=== PATIENT | male | born 1975 | race African-American/Black ===

== ENCOUNTER 2020-02-01 09:53 | Emergency (ER) | payer OTHER, BC, SELFPAY ==
[2020-02-01 10:01] VITALS: BP 139/91; PULSE 84; RESP 17; TEMP 36.9; O2SAT 97; BMI 23.1
--- NOTE | 2020-02-01 10:04 | XR_ITS ---
PROCEDURE: XR ELBOW RT MIN 3V CLINICAL INDICATION: pain, injury COMPARISON: XR SHOULDER RT MIN 2V from 02/01/2020 FINDINGS: There is a small calcific density between the radial head and the coracoid process which measures 4 mm. This is nonspecific and could be related to an old or acute injury or even an overlying osteophyte or summation density. No other significant anomalies are evident. The joint spaces are well-preserved. No significant degenerative/arthritic changes. No erosive changes evident. Other findings:None. IMPRESSION: Possible avulsion fracture along the proximal aspect between the radial head and the coracoid process age indeterminate. CT may confirm Dictated by: Jeffery Flores MD 02/01/2020 11:01 Electronically signed by Jeffery Flores MD in [place] 02/01/2020 11:01
--- NOTE | 2020-02-01 10:04 | XR_ITS ---
PROCEDURE: XR SHOULDER RT MIN 2V CLINICAL INDICATION: pain, injury Right anterior shoulder pain COMPARISON: No exams were available for comparison FINDINGS: No obvious fracture or dislocation. There is some some ill-defined sclerosis of the humeral head at the base of the greater tuberosity with some sub chondral cystic changes which can be seen with rotator cuff disease. IMPRESSION: No acute finding. Degenerative changes at the humeral head Dictated by: Jeffery Flores MD 02/01/2020 11:02 Electronically signed by Jeffery Flores MD in [place] 02/01/2020 11:02
--- NOTE | 2020-02-01 10:18 | PC.NURSE ---
PT TO RAD
--- NOTE | 2020-02-01 10:24 | PC.NURSE ---
PT RETURNED FROM RAD
--- NOTE | 2020-02-01 10:50 | HMH.EDGENADL ---
ED Disposition Clinical Impression: Injury of right rotator cuff Qualifiers: Encounter type: initial encounter Qualified Code(s): S46.001A - Unspecified injury of muscle(s) and tendon(s) of the rotator cuff of right shoulder, initial encounter Contusion of right elbow Qualifiers: Encounter type: initial encounter Qualified Code(s): S50.01XA - Contusion of right elbow, initial encounter Disposition: Home, Self-Care Condition on Discharge: Good Instructions: DI for Rotator Cuff Injury, How to Use a Sling, DI for Elbow Pain Additional Instructions: Sling, ice, elevation. [place] as needed for pain. Follow-up with orthopedics, call for appointment. Additional instructions for CONTROLLED SUBSTANCES: You have been prescribed a medication that is a controlled substance. Controlled substances include pain medications known as opiates and sedative nerve medications known as benzodiazepines. Tramadol, fioricet, and gabapentin are also controlled substances. Some common opiates include: Codeine (such as Tylenol #3) Hydrocodone (Vicodin, Lortab, Lorcet, [place]) Oxycodone (Percocet, Percodan, Oxycodone, Oxy IR) Some common benzodiazepines include: Diazepam (Valium) Lorazepam (Ativan) Alprazolam (Xanax) Clonazepam (Klonopin) Oxazepam (Serax) All of these controlled substances are highly addictive and frequently abused. Misuse can and frequently does lead to addiction as well as overdose and . Medication should be stored in a locked cabinet or other secure storage unit. Do not store the medication in a motor vehicle. Short term supplies, 3 days or less, are prescribed because of the highly addictive nature of the medication. Any of the controlled substance medication NOT taken should be disposed of properly and NOT SAVED. The recommended method of disposing of unused medications is: Place the medicines in a sealable plastic bag. If the medicine is a solid, crush it or add water to dissolve it. Add something undesirable (cat litter, coffee grounds, etc.) Dispose of sealed bag in household trash Do not flush or pour unused medicines down a sink or drain. Controlled substances should not be shared, given away or sold. Because of the addictive nature and frequent abuse, these medications are sometimes stolen. These medications should be kept in a safe place where they cannot be stolen. Do not keep them in your car or purse. Lost or stolen prescriptions for controlled substances WILL NOT BE REFILLED in this emergency department, regardless of whether a police report was filed. Prescriptions: Hydrocod/Acet 5/325 mg [[place] 5/325mg tablet] 1 tab PO Q6HP PRN #10 tab PRN Reason: Pain Transmission Status: Sent to [facility] Referrals: Provider,Erika, [Primary Care Provider] - Sudhir Simpson MD [Staff Physician] - Forms: Work/School Release - Critical Care Critical Care Time: No Attestation: On 02/01/20, the high probability of a clinically significant, sudden or life threatening deterioration of the following system(s) required my full and direct attention, intervention and personal management. The time I documented below is in addition to time spent performing reported procedures but includes the following listed in this critical care notation. Medical Decision Making - Andres Inquiry Pt receiving controlled substance: Yes Andres was queried for this patient: Yes Reference #:: [id number] Risks and benefits of using a controlled substance: were discussed with pt by me Comment: 15 rxs for adderall Vital Signs: 02/01/20 10:01 Temperature 98.4 F Temperature Source Oral Pulse Rate [Right Radial] 84 Respiratory Rate 17 Blood Pressure [Right Arm] 139/91 H Blood Pressure Mean [Right Arm] 107 02 Sat by Pulse Oximetry 97 Oxygen Delivery Method Room Air - Radiology Data #1 Image Reviewed: Yes I reviewed the patient's radiology image, Yes I have reviewed radiologist's int
--- NOTE | 2020-02-01 11:09 | CT_ITS ---
PROCEDURE: CT ELBOW RT WO CON CLINICAL HISTORY: possible fracture on x-ray Injury with pain, possible fracture noted on radiograph COMPARISON: No exams were available for comparison TECHNIQUE: Axial images obtained with sagittal and coronal reformats. All CT scans at the facility use one or more dose reduction, viz: automated exposure control, ma/kV adjustment per patient size (including targeted exams where dose is matched to indication, i.e. head), or iterative reconstruction technique. FINDINGS: There is a small extra calcific density noted along the lateral aspect of the trochlea of the humerus. On the sagittal reformatted image this has a somewhat irregular contour and has the appearance of a fracture. The margins are however well-circumscribed. This could represent a chronic injury. The loose body is also consideration. No displaced fat pad is evident. No joint effusion. No other significant anomalies are evident. IMPRESSION: A small well-circumscribed calcific density is present along the lateral trochlear ridge and may represent an avulsion fracture. The margins do appear somewhat sclerotic suggesting that this could be chronic. Please correlate with clinical findings. An intra-articular loose body is also consideration. No other significant anomalies are evident. No displaced fat pad Dictated by: Jeffery Flores MD 02/01/2020 11:50 Electronically signed by Jeffery Flores MD in [place] 02/01/2020 11:50
[2020-02-01 12:48] VITALS: BP 143/79; PULSE 85; RESP 15; TEMP 36.6; O2SAT 100
== END 2020-02-01 12:49 | disposition home or self-care (01) ==
PROVIDERS: Emergency Provider Emergency Medicine
DX: S46.001A Unspecified injury of muscle(s) and tendon(s) of the rotator cuff of right shoulder, initial encounter (principal); S50.01XA Contusion of right elbow, initial encounter; Z88.0 Allergy status to penicillin; F17.210 Nicotine dependence, cigarettes, uncomplicated; W22.09XA Striking against other stationary object, initial encounter; Y92.69 Other specified industrial and construction area as the place of occurrence of the external cause; Y99.0 Civilian activity done for income or pay
CPT/HCPCS: 73030; 73080; 73200; 99282

== ENCOUNTER → 2020-02-22 12:50 | Outpatient (CLI) | payer OTHER, SELFPAY ==
--- NOTE | 2020-02-22 12:51 | MR_ITS ---
PROCEDURE: MR SHOULDER RT WO CON CLINICAL INDICATION: right shoulder pain, evaluate rotator cuff tear Right shoulder pain, injury with pain COMPARISON: XR SHOULDER RT MIN 2V from 02/01/2020 TECHNIQUE: Routine multiplanar multi echo sequences are performed without gadolinium enhancement. FINDINGS: Complete tear involves the supraspinatus tendon distally with mild retraction of the musculotendinous fibers. There is some thickening of the distal aspect of the infraspinatus tendon consistent with tendinopathy/tendinosis with suspected partial tear along the distal aspect and undersurface of the infraspinatus tendon. The subscapularis and teres minor tendons appear intact. Subarticular cyst is present along the greater tubercle which measures 5 mm with some increased T2 signal of the greater tubercle suggesting underlying inflammatory or posttraumatic changes. There is a small shoulder joint effusion. No definite labral tear. The bicipital tendon is in place. There is a small shoulder joint effusion IMPRESSION: 1. Complete tear of the supraspinatus tendon with mild retraction of the musculotendinous fibers 2. Tendinopathy/tendinosis of the infraspinatus tendon with suspected partial tear distally Dictated by: Jeffery Flores MD 02/23/2020 13:04 Electronically signed by Jeffery Flores MD in [place] 02/23/2020 13:04
== END ==
PROVIDERS: PCP Emergency Medicine; Visit Provider Orthopaedic Surgery
DX: S49.91XA Unspecified injury of right shoulder and upper arm, initial encounter (principal)
CPT/HCPCS: 73221

== ENCOUNTER → 2020-03-13 14:27 | Outpatient (POV) | payer OTHER, SELFPAY | PROVIDERS: PCP Emergency Medicine; Visit Provider Specialist | DX: M79.601 Pain in right arm (principal); R20.2 Paresthesia of skin | CPT/HCPCS: 95886; 95908 ==

== ENCOUNTER 2020-03-19 13:33 | Emergency (ER) | payer OTHER, SELFPAY ==
[2020-03-19 13:44] VITALS: BP 142/81; PULSE 91; RESP 18; TEMP 36.9; O2SAT 99; BMI 26.4
--- NOTE | 2020-03-19 14:07 | HMH.EDUTC ---
[facility] Disposition Clinical Impression: Encounter to obtain excuse from work Shoulder pain Qualifiers: Chronicity: chronic Laterality: right Qualified Code(s): M25.511 - Pain in right shoulder Disposition: Home, Self-Care Condition on Discharge: Good Instructions: DI for Shoulder Pain, Rotator Cuff Injury Additional Instructions: Follow up with Dr Simpson on Fri as scheduled Return if needed Straight to ER if any life threatening symptoms Follow up with PCP if needed Prescriptions: Ibuprofen [Ibuprofen 800mg Tablet] 800 mg PO TIDP PRN #20 tab PRN Reason: Moderate Pain Transmission Status: Pending to [facility] Referrals: Ezequiel Gil MD [Primary Care Provider] - Sudhir Simpson MD [Staff Physician] - Time of Disposition: 14:10 Medical Decision Making - Andres Inquiry Pt receiving controlled substance: No Andres was queried for this patient: No Vital Signs: 03/19/20 13:44 Temperature 98.5 F Temperature Source Oral Pulse Rate [Right Brachial] 91 H Respiratory Rate 18 Blood Pressure [Right Arm] 142/81 H Blood Pressure Mean [Right Arm] 101 Blood Pressure Source [Right Arm] Automatic Cuff Blood Pressure Position [Right Arm] Sitting 02 Sat by Pulse Oximetry 99 Oxygen Delivery Method Room Air [facility] HPI - General Stated complaint: shoulder pain Time Seen by Provider: 03/19/20 14:07 Mode of Arrival: Ambulatory Source of Information: Patient Limitations: No Limitations Description of Symptoms (Recalled from Triage Doc. by RN): Pt reports pain in his left shoulder, he states he has a tear in his rotator cuff that he is going to have sx on soon, and his PCP is giving him pain medication but his office isn't open today, so he is here for pain meds. No other symptoms reported at this time/ HEENT Symptoms (Recalled from RN notes): No Resp Symptoms (Recalled from RN notes): No Skin Symptoms (Recalled from RN notes): No MS Symptoms (Recalled from RN notes): No Functional Status (Recalled from RN notes): na - History of Present Illness Provider Complaint: Patient states that he has a right rotator cuff tear and scheduled for follow up with Dr Simpson on Fri but he used it alot yesterday at work and woke up this morning with it hurting and couldnt go to work State that he come in to get a doctors note for work and see if he could get something for pain State that he didnt do anything else to hurt it just used his arm yesterday and aggrivated it - Related Data Previous Rx's Medication Instructions Recorded Ibuprofen [Ibuprofen 800mg 800 mg PO TIDP PRN #20 tab 03/19/20 Tablet] Allergies Allergy/AdvReac Type Severity Reaction Status Date / Time Penicillins [PENICILLINS] Allergy Mild hives Verified 03/19/20 13:49 - Worker's Comp Is this a Worker's Comp case?: No [facility] History - Hepatitis A Screen Drug use history?: No High risk sexual behaviors?: No History of sexually transmitted infection?: No Currently employed?: No Childcare worker?: No Do you have indoor plumbing?: Yes Do you have electricity?: Yes Attestation statement:: This patient has been screened for Hepatitis A risk factors. I have reviewed the patient's past medical history: Yes Medical History: Reports:: Anxiety Denies:: Diabetes Mellitus Type 1, Diabetes Mellitus Type 2, Hypertension Other Surgeries: Yes: No Previous Surgery Fractures: Yes (SPINE AND WRIST) - Social History Smoking Status: Current every day smoker Tobacco Type: cigarettes # Packs/Day (cigarettes): 1 Alcohol Intake: current Alcohol Intake Frequency:: 3 or more drinks per day Substance Use Type: denies use Occupational Status: employed Household Members: family, children - Psychiatric History Pschychiatric History:: Reports:: Anxiety Family Hx:: No significant family history ROS Obtained: Yes All systems reviewed & no additional complaints, Yes Systems reviewed as appropriate & no additional complaints - Allergic/Immunologi
[2020-03-19 14:18] VITALS: BP 142/81; PULSE 91; RESP 18; TEMP 36.9; O2SAT 99
== END 2020-03-19 14:19 | disposition home or self-care (01) ==
PROVIDERS: Emergency Provider Nurse Practitioner; PCP Emergency Medicine
DX: M75.121 Complete rotator cuff tear or rupture of right shoulder, not specified as traumatic (principal); F41.9 Anxiety disorder, unspecified; F17.210 Nicotine dependence, cigarettes, uncomplicated; Z88.0 Allergy status to penicillin
CPT/HCPCS: 99201

== ENCOUNTER → 2020-04-20 10:03 | Outpatient (CLI) | payer OTHER, SELFPAY ==
--- NOTE | 2020-04-20 10:08 | XR_ITS ---
PROCEDURE: XR CHEST 2V CLINICAL HISTORY: SMOKER COMPARISON: No exams were available for comparison FINDINGS: The cardiomediastinal silhouette and pulmonary vascularity are within normal limits. The lungs are clear without infiltrates, suspicious nodules, or pleural effusions. No acute bony abnormalities. IMPRESSION: No acute findings. Dictated by: Jeffery Flores MD 04/20/2020 14:48 Electronically signed by Jeffery Flores MD in [place] 04/20/2020 14:48
[2020-04-20 10:47] LABS: Basophils % 0.3 % (0.1-2.0); Eosinophils # 0.1 K/mm3 (0.0-0.4); Eosinophils % 1.8 % (0.1-12.0); Hemoglobin 16.3 g/dL (14.1-18.0); Lymphocytes # 1.8 K/mm3 (0.7-4.5); Lymphocytes % 30.5 % (10-50); Mean Corpuscular HGB Conc 33.9 g/dL (31.8-35.4); Mean Corpuscular Hemoglobin 33.3 pg (27.0-31.2); Mean Corpuscular Volume 98.3 fl (80-94); Mean Platelet Volume 7.4 fl (7.4-10.4); Monocytes # 0.3 K/mm3 (0.1-1.0); Monocytes % 5.6 % (1.7-9.3); Neutrophils # 3.6 K/mm3 (1.8-7.8); Neutrophils % 61.7 % (37.0-80.0); Platelet Count 252 K/mm3 (142-424); Red Blood Count 4.89 M/mm3 (4.60-6.20); Red Cell Distribution Width 13.5 % (11.5-17.5); White Blood Count 5.8 K/mm3 (4.8-10.8)
[2020-04-20 11:33] LABS: Chloride 102 mmol/L (98-107); Sodium 138 mmol/L (136-145)
[2020-04-20 11:34] LABS: Potassium 4.5 mmoL/L (3.5-5.1)
[2020-04-20 11:36] LABS: Alanine Aminotransferase 35 U/L (12-78); Albumin Level 4.6 g/dl (3.5-5.0); Albumin/Globulin Ratio 1.4 (1.1-1.8); Alkaline Phosphatase 51 U/L (38-126); Anion Gap 11.5 mEq/L (5-15); Aspartate Amino Transferase 34 U/L (17-59); Bilirubin,Total 0.6 mg/dl (0.2-1.3); Blood Urea Nitrogen 10 mg/dl (9-20); Carbon Dioxide 29 mmol/L (22.0-30.0); Estimated Glomerular Filt Rate 72 ml/min (>60); GFR (African American) 87 ML/MIN (>60); Globulin 3.2 g/dL (1.3-3.2); Total Protein,Serum 7.8 g/dl (6.3-8.2)
[2020-04-20 11:37] LABS: Calcium 9.8 mg/dl (8.4-10.2); Glucose 100 mg/dl (74-100)
[2020-04-20 13:19] LABS: Coronavirus 19 IgG Antibody Positive (Negative); Coronavirus 19 IgM Antibody Negative (Negative)
== END ==
PROVIDERS: PCP Emergency Medicine; Visit Provider Orthopaedic Surgery
DX: Z01.818 Encounter for other preprocedural examination (principal); M25.511 Pain in right shoulder
CPT/HCPCS: 36415; 71046; 80053; 85025; 86328

== ENCOUNTER 2020-04-21 07:16 | Day surgery (SDC) | payer OTHER, SELFPAY ==
[2020-04-20 09:16] VITALS: BMI 24.7
[2020-04-21] VITALS (14 sets, daily range): BP systolic 114–141; BP diastolic 66–89; PULSE 73–87; RESP 16–20; TEMP 36.2–38; O2SAT 94–100
[2020-04-21 13:35] LABS: Microscopic,Cath URINE MICROSCOPIC (MICROSCOPIC)
[2020-04-21 13:37] LABS: Appearance,Urine/Cath CLEAR (Clear); Bilirubin,Cath Negative (Negative); Blood, Urine/Cath TRACE-L (Negative); Color,Urine/Cath YELLOW (Yellow); Glucose,Urine/Cath (UA) Negative (Negative); Ketones,Urine/Cath Negative (Negative); Leukocyte Esterase,Cath Negative (Negative); Nitrate,Cath Negative (Negative); Protein,Urine/Cath Negative (Negative); Urobilinogen,Cath 0.2 EU/dl (0.2)
[2020-04-21 13:49] LABS: Squamous Epithelial Ur./Cath Occasional #/hpf (0-5); WBC,Urine/Cath Occasional #/hpf (0-3)
--- NOTE | 2020-04-21 14:45 | P.PN_ITS ---
[facility] Anesthesia Checklist - Patient Identification Patient Identification: Arm Band, Verbal (Name & ) - Structural Data Admitted From: Home Planned Operative Procedure/s: shoulder scope Consent for Planned Operative Procedure(s) Verified: Yes Verified Documents: History and Physical - NPO Status Verified Time NPO: 00:00 - Chart Verification Results Verified: CBC, BMP - Additional verifications Patient : No Anesthesia Reactions: No Hx Blood Transfusions: No Blood Transfusion Reaction: No Cephalosporin Allergy: No Previous Colonoscopy: No - Cardiovascular Assessment Heart Sounds: S1 & S2 Pulse Strength: Baseline Pulse Rhythm: Regular Peripheral Edema: No - Airway Assessment C-Spine Mobility Assessed: Yes TMJ Mobility Assessed: Yes Dentition: Good Dentition - Neurological Assessment Level of Consciousness: Awake, Alert, Appropriate Hx Seizures: No Numbness or tingling in extremities: No - Anesthesia Plan Anesthesia Risk discussed: Yes Anesthesia Plan: Verified ASA Class: II Anesthesia Type: General w/block [facility] History I have reviewed the patient's past medical history: Yes Medical History: Reports:: Anxiety Denies:: Cancer, Diabetes Mellitus Type 1, Diabetes Mellitus Type 2, Hypertension, Internal Pacemaker, MRSA, Seizures *Have you ever received a pneumonia vaccine?: No *Have you received a flu vaccine this season?: No Other Medical History: Denies: Blood Transfusion Reaction Anesthesia experience/problems:: none Other Surgeries: Yes: No Previous Surgery. No: Pacemaker Amputation: No Fractures: Yes (SPINE AND WRIST) - *Social History Last grade of school completed: 11th or 12th Smoking Status: Current every day smoker Tobacco Type: cigarettes # Packs/Day (cigarettes): 1 Alcohol Intake: current Alcohol Intake Frequency:: a few times a month Substance Use Type: denies use *Occupational Status:: employed Housing: house Household Members: spouse, family *Travel in the last 8 weeks: None - Psychiatric History Pschychiatric History:: Reports:: Anxiety Family Hx:: No significant family history
--- NOTE | 2020-04-21 14:46 | P.PN_ITS ---
[facility] Anesthesia Record Part I Intake, IV Amount: 2,100 Estimated blood loss (mL): 10 (.) Urine output (mL): 500 Blood Products used (#): none Blood Pressure: 136/89 SaO2: 94 Pulse Rate: 87 Respiratory Rate: 20 Temperature: 97.6 F Patient is:: Drowsy, Stable Stable to PACU at:: 14:41
--- NOTE | 2020-04-21 15:18 | PC.NURSE ---
1512-detailed report called to CATRACHO Godfrey 1516-pt transported to post op via stretcher w/juju rails up per CATRACHO Pringle, no acute changes noted, pt denies pain or nausea, vss, pt stable
--- NOTE | 2020-04-21 15:37 | HMH.OPNOTE ---
Date of procedure: 04/21/20 Pre-op Diagnosis:: 1. Full-thickness Rotator cuff tear, RIGHT shoulder 2. Biceps tendinopathy, RIGHT shoulder 3. Subacromial bursitis, RIGHT shoulder 4. Subacromial impingement, RIGHT shoulder 5. AC joint arthritis, RIGHT shoulder Post-op Diagnosis:: 1. Full-thickness Rotator cuff tear, RIGHT shoulder 2. Biceps tendinopathy, RIGHT shoulder 3. Subacromial bursitis, RIGHT shoulder 4. Subacromial impingement, RIGHT shoulder 5. AC joint arthritis, RIGHT shoulder 6. SLAP tear, RIGHT shoulder Procedure performed:: 1. Arthroscopic rotator cuff repair, RIGHT shoulder. 2. Arthroscopic subacromial decompression with subacromial and subdeltoid bursectomy and bony acromioplasty, RIGHT shoulder. 3. Arthroscopic glenohumeral joint debridement, extensive, RIGHT shoulder. 4.? Arthroscopic biceps tenodesis, RIGHT shoulder 5. Arthroscopic distal clavicle excision, RIGHT shoulder Surgeon:: Sudhir Simpson MD Information Engineer(s):: Zhane Weiner GEAR CODING MACHINE OPERATOR:: Moses Penaloza Anesthesia: GETA Estimated blood loss (mL): 10 Clinical Note:: Patient is a pleasant 45-year-old [id number] gentleman with history of pain and disability in his RIGHT shoulder following a work-related injury about 3 months ago. He had weakness and difficulty with the use of the arm. Preoperative evaluation was consistent with the above mentioned diagnoses. After discussion of the risks and benefits of the surgical versus nonsurgical management, he elected to proceed with surgical remediation. Please refer to my office note for full details. Operative findings:: There is a full-thickness crescent-shaped complete, minimally retracted tear of the posterior supraspinatus and anterior infraspinatus tendons. The intra-articular biceps tendon showed thickening and synovitis. At the time of arthroscopic tenodesis marked synovitis and partial thickness tear was noted in the extra-articular part of the biceps tendon. The labrum was frayed all around and showed a SLAP tear. The pouch and rotator interval were synovitic. The articular surface of the humerus was normal and the glenoid had minor degenerative changes. There was extensive subacromial and subdeltoid bursitis and the acromion had undersurface spurring over the anterolateral margin. The AC joint had undersurface osteophytes on both sides. Operative note:: On the day of the procedure, the patient was met and positively identified in the preoperative area; the surgical site was marked and initialed by me. I have again reviewed the clinical, x- ray and MRI findings with the patient. We had a detailed discussion about the diagnosis, implications of it, natural history and management options including both nonsurgical and surgical options for the shoulder.? Patient has decided to proceed with surgery as planned - the proposed surgery includes arthroscopic/open glenohumeral joint examination and debridement as appropriate, subacromial decompression with bony acromioplasty, rotator cuff repair as needed and biceps tenodesis.? Nonsurgical alternatives explained as well which in his case would be rest, activity modification, local ice and heat as appropriate, physical therapy, local steroid injections, nonsteroidal anti-inflammatory drugs and other effective pain management measures. I told the patient that there were no guarantees with surgery; he could be no better or even worse. The complications discussed include but are not limited to infection, injury to nerves, blood vessels and tendons/ligaments, bleeding, continued symptoms, ectopic calcification, reactive bursitis, adhesive capsulitis, shoulder stiffness, chondrolysis, failure of the tendon to heal, tendon re-rupture, implant failure/anchor pullout, likely need for further surgery, reaction to anesthetic with damage to the heart, lungs, brain, and even .? We discussed possible screw site pain with tenodesis and the extra surgery involved and complications there of.? Patient el
--- NOTE | 2020-04-22 10:24 | P.PN_ITS ---
[facility] Anesthesia Record Part II Discharge Time: 15:11 Destination: Surgical Day Care (OP Surgery) PACU nurse assessment reviewed?: Yes Patient Condition:: Good Anesthesia Complications:: None Swallowing reflex intact?: Yes Cyanosis?: No Blood Pressure: 133/76 Pulse Rate: 80 Temperature: 97.2 F Mental Status: Alert & Oriented Pain level:: 1 Nausea and/or vomitting:: None Intake, IV Amount: 25
[2020-04-22 10:25] VITALS: BP 133/76; PULSE 80; TEMP 36.2
== END 2020-04-21 17:10 | disposition home or self-care (01) ==
LOC: OR 07:17
PROVIDERS: PCP Nurse Practitioner Family; Visit Provider Orthopaedic Surgery
PROC: (CPT 29805; principal; 2020-04-21 08:45)
DX: S46.011A Strain of muscle(s) and tendon(s) of the rotator cuff of right shoulder, initial encounter (principal); M75.41 Impingement syndrome of right shoulder; M19.011 Primary osteoarthritis, right shoulder; M75.21 Bicipital tendinitis, right shoulder; G56.01 Carpal tunnel syndrome, right upper limb; M67.911 Unspecified disorder of synovium and tendon, right shoulder; S43.431A Superior glenoid labrum lesion of right shoulder, initial encounter; W55.19XA Other contact with horse, initial encounter; Y92.79 Other farm location as the place of occurrence of the external cause; Y99.0 Civilian activity done for income or pay
CPT/HCPCS: 29827; 29828; 29826; 81001; 96374; C1713; J2405

== ENCOUNTER → 2020-07-19 09:10 | Outpatient (CLI) | payer OTHER, SELFPAY ==
--- NOTE | 2020-07-19 09:14 | XR_ITS ---
PROCEDURE: XR SHOULDER RT MIN 2V CLINICAL INDICATION: sp RT shoulder surgery Pain COMPARISON: CR XR SHOULDER RT MIN 2V from 02/01/2020 FINDINGS: Postsurgical changes of the acromioclavicular joint status post osteotomy of the AC joint. There are 2 anchor screws along the proximal humerus. A lucent defect is present in the proximal humeral shaft consistent with bicipital transfer. There is some mottled density of the humeral head which is nonspecific. This could be due to disuse osteopenia. No fracture or dislocation. Other findings:None. IMPRESSION: Postsurgical changes as described above. Mottled density of the humeral head nonspecific and could be seen with postoperative or disuse osteopenia. Some of these areas of decreased attenuation may be related to subchondral cystic changes. Follow-up suggested to confirm stability Dictated by: Jeffery Flores MD 07/19/2020 16:15 Jeffery Flores MD in [place] 07/19/2020 16:15
== END ==
PROVIDERS: PCP Emergency Medicine; Visit Provider Orthopaedic Surgery
DX: Z09 Encounter for follow-up examination after completed treatment for conditions other than malignant neoplasm (principal); M25.511 Pain in right shoulder
CPT/HCPCS: 73030

== ENCOUNTER → 2020-08-23 09:34 | Outpatient (CLI) | payer OTHER, SELFPAY ==
--- NOTE | 2020-08-23 09:36 | XR_ITS ---
PROCEDURE: XR SHOULDER RT MIN 2V CLINICAL INDICATION: sp RT shoulder RCR, sx 04/21/2020 Follow-up surgery COMPARISON: CR XR SHOULDER RT MIN 2V from 02/01/2020 CR XR SHOULDER RT MIN 2V from 07/19/2020 FINDINGS: Postsurgical changes. Two anchor screws are present over the humeral head. There has been a prior osteotomy at the AC joint. Generalized osteopenia is present at the humeral head. Lucency is present in the proximal humerus likely from bicipital transfer The joint spaces are well-preserved. No significant degenerative/arthritic changes. No erosive changes evident. Other findings:None. IMPRESSION: Postsurgical changes as described above overall not significantly changed Dictated by: Jeffery Flores MD 08/23/2020 15:24 Jeffery Flores MD in [place] 08/23/2020 15:24
== END ==
PROVIDERS: PCP Emergency Medicine; Visit Provider Orthopaedic Surgery
DX: M25.511 Pain in right shoulder (principal); Z09 Encounter for follow-up examination after completed treatment for conditions other than malignant neoplasm; Z98.890 Other specified postprocedural states
CPT/HCPCS: 73030

== ENCOUNTER 2020-10-31 10:00 | Outpatient (RCR) | payer OTHER, SELFPAY ==
--- NOTE | 2020-06-07 14:52 | HMH.PTOPEV ---
PT Outpatient Evaluation Rehab PT Outpatient Evaluation Start: 06/07/20 14:40 Freq: Status: Active Protocol: Document 06/07/20 14:40 JOSIAS (Rec: 06/07/20 14:52 JOSIAS [id number]) Electronically Signed By Malcolm Singh, PT 06/07/20 14:40 Outpatient Therapy Subjective History Subjective History Patient is a 45 year old male presenting to outpatient PT with reports of R post- surgical shoulder pain S/P R RCR with DCE and biceps tenodesis performed 04/21/20. Initial injury was a pulling injury that occured 01/31/20 while pulling a horse. This is a workmans comp case. Pt presents out of sling with MD lifting restrictions noted. No other comorbidities to report . Chief Complaint Pain,Spasms,Stiff Symptom Type Ache,Shooting Symptoms Relieved By Rest/Positioning,OTC Meds Symptoms Aggravated By Physical Activity,Lifting Prior Functional Limitations None Current Functional Limitations Reaching,Lifting,Housework, Dressing,Driving,Sleeping, Recreation Activity Symptom Description Constant but Variable Level of pain today (0-10) 2 Pain scale - at its best (0-10) 0 Pain scale - at its worst (0-10) 7 Shoulder/Elbow Eval Shoulder Objective Measurements Palpation Tenderness tenderness shoulder exam standard right tenderness over the bicipital tendon right shoulder exam standard tenderness over the SA bursa shoulder right exam standard Shoulder Palpation Findings Tenderness Shoulder Palpation Overall Comment 4/4 Posture Shoulder Posture Sitting Position Neutral Shoulder Posture Standing Position Neutral Flexibilty Deficits Shoulder External Rotators Muscle Length (R) Severe Tightness Shoulder Internal Rotators Muscle Length (R) Severe Tightness Upper Trapezius Muscle Length (R) Moderate Tightness Shoulder ROM Right Shoulder ROM Limitations Soft Tissue Tightness Shoulder Abduction Passive Range of 45 Motion (degrees) Shoulder Flexion Passive Range of Motion 25 (degrees) Shoulder External Rotation Passive Range 10 of Motion (degrees) Shoulder Internal Rotation Passive Range 60 of Motion (degrees) Shoulder MMT Shoulder Strength Reason Not Measured Orthopedic Precautions Shoulder Muscle Tone Shoulder Flexor Muscle Tone Description Moderate Hypertonicity Shoulder Extensors Muscle Tone Moderate Hypertonicity Description
== END 2020-10-31 10:05 | disposition home or self-care (01) ==
LOC: PT 10:00
PROVIDERS: Visit Provider Orthopaedic Surgery
DX: M75.101 Unspecified rotator cuff tear or rupture of right shoulder, not specified as traumatic; M25.511 Pain in right shoulder; S46.001D Unspecified injury of muscle(s) and tendon(s) of the rotator cuff of right shoulder, subsequent encounter
CPT/HCPCS: 97010; 97014; 97016; 97033; 97110; 97140; 97163; 97164; G0283

== ENCOUNTER → 2021-01-24 14:40 | Outpatient (CLI) | payer BC, SELFPAY ==
--- NOTE | 2021-01-24 14:48 | XR_ITS ---
PROCEDURE: XR SHOULDER RT MIN 2V CLINICAL INDICATION: s/p RT shoulder Right shoulder pain COMPARISON: CR XR SHOULDER RT MIN 2V from 02/01/2020 CR XR SHOULDER RT MIN 2V from 07/19/2020 DX XR SHOULDER RT MIN 2V from 08/23/2020 FINDINGS: There are postsurgical changes with mild prominence of the acromioclavicular joint space. Suspect osteotomy similar to the previous exam. There are 2 anchor screws along the humeral head with a lucency in the proximal shaft of the humerus consistent with bicipital transfer. There is some mottled density at the humeral head which may be related to osteopenia. No acute fracture or dislocation. There are minimal osteoarthritic changes at the glenohumeral joint. No acute fracture or dislocation. No lytic or blastic change Other findings:None. IMPRESSION: Postsurgical changes as described above. Mottled density at the humeral head which may be related to some underlying osteopenia. No change with no acute finding Dictated by: Jeffery Flores MD 01/24/2021 15:57 Jeffery Flores MD in [place] 01/24/2021 15:57
== END ==
PROVIDERS: PCP Physician Assistant; Visit Provider Orthopaedic Surgery
DX: M25.511 Pain in right shoulder (principal); Z09 Encounter for follow-up examination after completed treatment for conditions other than malignant neoplasm
CPT/HCPCS: 73030

== ENCOUNTER 2022-07-22 11:39 | Emergency (ER) | payer SELFPAY ==
--- NOTE | 2022-07-22 11:46 | XR_ITS ---
FINAL REPORT CLINICAL HISTORY: CHEST PAIN AFTER BEING HIT BY A HORSE FINDINGS: RIGHT RIB SERIES 4 views of the right ribs show no fractures. There is no pneumothorax or pleural fluid collection. Frontal chest radiograph is unremarkable. IMPRESSION: Negative right rib series. No pneumothorax. Reviewed, Interpreted and Dictated by Macaroi Gillespie III, MD Transcribed by Helen Irvin Authenticated and [facility]
[2022-07-22 12:20] VITALS: BP 134/85; PULSE 81; RESP 16; TEMP 36.6; O2SAT 98; BMI 24.7
--- NOTE | 2022-07-22 12:58 | EXP.UTC ---
Discharge Plan Disposition Patient Disposition: Home, Self-Care Condition: Good Prescriptions Prescriptions: No Action escitalopram oxalate [Lexapro] 20 mg tablet 20 mg PO QDAY Qty: 90 0RF Vraylar 1.5 mg capsule 1.5 mg PO DAILY Qty: 90 0RF Referrals Follow up/Referrals: Zully Cardona PA [Primary Care Provider] - See instructions Activity Restrictions/Add. Instructions Additional Instructions/Restrictions: *Ibuprofen ave 6 hours with meal as needed for pain/inflammation *Not additional anti-inflammatory like motrin, aleve, advil with the above amount of ibuprofen. You can still take Tylenol every 4 hours as needed if you need something else for pain *Ice 20 minutes every 2 hours for the first 48 hours after the initial injury followed by moist heat every 20 minutes 3-4 times a day to affected area *Keep this area active, no movement leads to more stiffness, However take it easy and avoid heavy lifting pushing or pulling *Follow up with you family doctor if no improvement for further treatment Clinical Impressions Clinical Impression: Contusion of ribs Stand Alone Forms Stand Alone Forms: Work/School Release Instructions Patient Instructions: DI for Rib Contusion Discharge ED Provider: Vangie Santana [facility] HPI General Stated complaint: Horse hit RT side ribs 07/19/22 Mode of Arrival: Ambulatory Source of Information: Patient Limitations: No Limitations Time Seen by Provider: 07/22/22 12:58 Description of Symptoms (Recalled from Triage Doc. by RN): pt comes in with right sided rib pain. pt states a horse ran into his ribs friday while working with the horse. 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 States that on Friday a horse ran into his right side of ribs and he has been having pain in his ribs ever since States that hurts with certain movements and when he touches it States that today he was still having pain so he came in to get checked out Related Data Previous Rx's Medication Instructions Recorded cariprazine 1.5 mg capsule 1.5 mg PO DAILY #90 caps 01/16/21 (Vraylar) escitalopram oxalate 20 mg tablet 20 mg PO QDAY #90 tabs 01/16/21 (Lexapro) Allergies Allergy/AdvReac Type Severity Reaction Status Date / Time Penicillins [PENICILLINS] Allergy Mild hives Verified 07/22/22 12:22 Worker's Comp Is this a Worker's Comp case?: No PFSH PFSH Medical History (Updated 07/22/22 @ 13:49 by Vangie Santana APRN) Anxiety with depression Social History Smoking Status: Current every day smoker tobacco type: cigarettes packs per day: 1 alcohol intake: former substance use type: marijuana current occupational status: employed Travel in the last 8 weeks: None household members: spouse and family housing: house current occupation: [employer] caffeine: Yes ROS Obtained: Yes All systems reviewed & no additional complaints except as documented and Yes Systems reviewed as appropriate & no additional complaints except as documented ENT Ears, Nose, Mouth, and Throat: Reports system reviewed and no additional complaints, except as documented and Reports as per HPI Cardiovascular Cardiovascular: Reports system reviewed and no additional complaints, except as documented and Reports as per HPI Musculoskeletal Musculoskeletal: Reports system reviewed and no additional complaints, except as documented, Reports as per HPI and Reports other (pain in right ribs after being hit in side by horse) Physical Exam General General appearance: alert and in no apparent distress Expanded Chest Exam Male Torso: 1. reports pain with movement or touch after being
[2022-07-22 13:49] VITALS: BP 134/85; PULSE 81; RESP 16; TEMP 36.6; O2SAT 98
== END 2022-07-22 13:52 | disposition home or self-care (01) ==
PROVIDERS: Emergency Provider Nurse Practitioner; PCP Physician Assistant
DX: S20.211A Contusion of right front wall of thorax, initial encounter (principal); F17.210 Nicotine dependence, cigarettes, uncomplicated; F32.A Depression, unspecified; F41.9 Anxiety disorder, unspecified; Z88.0 Allergy status to penicillin; W55.12XA Struck by horse, initial encounter
CPT/HCPCS: 71101; 99213; G0463